=== PATIENT | male | born 1980 | race Caucasian/White ===

== ENCOUNTER 2020-09-03 16:23 | Emergency (ER) | payer OTHER ==
[~2020-09-03 16:23] MED LIST: CLEOCIN HCL300 MG PO; CLINDAMYCIN HC300 MG PO; IBUPROFEN600 MG PO
[2020-09-03] MEDS ORDERED: CLINDAMYCIN HC300 MG PO (19:34)
== END 2020-09-03 20:28 | disposition home or self-care (01) ==
LOC: ER1 16:23
DX: L03.211 Cellulitis of face (principal); Z79.899 Other long term (current) drug therapy; Z88.0 Allergy status to penicillin; Z88.6 Allergy status to analgesic agent
CPT/HCPCS: 70486; 96372; 96374; 99283; J1885